=== PATIENT | male | born 1985 | race Caucasian/White ===

== ENCOUNTER 2018-07-31 21:23 | Emergency (ER) | payer OTHER ==
[~2018-07-31] VITALS: Ht 167.6 cm; Wt 79.5 kg
[2018-07-31 21:23] VITALS: BP 131/88
[2018-07-31] MEDS ORDERED: DOXYCYCLINE HYCLATE 100 MG TAB PO ONE (22:00)
[2018-07-31] MEDS ORDERED: metroNIDAZOLE (FLAGYL) 500 MG TAB PO ONE (22:00)
[2018-07-31] MEDS ORDERED: DOXY100C37 PO (22:16)
[2018-07-31] MEDS ORDERED: FLAG500T PO (22:16)
== END 2018-07-31 22:34 | disposition home or self-care (01) ==
LOC: M ED 21:23
DX: S61.032A Puncture wound without foreign body of left thumb without damage to nail, initial encounter (principal); W55.01XA Bitten by cat, initial encounter; Y92.018 Other place in single-family (private) house as the place of occurrence of the external cause; Z88.0 Allergy status to penicillin